=== PATIENT | male | born 2005 | race American Indian/Alaskan Native ===

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

== ENCOUNTER 2025-05-19 04:09 | Emergency (ER) | payer OTHER ==
[~2025-05-19] VITALS: Ht 182.9 cm; Wt 99.8 kg
[2025-05-19 04:16] VITALS: BP 153/90
[2025-05-19] MEDS ORDERED: Veetids 500500 MG PO (04:16)
[2025-05-19] MEDS ORDERED: PERIDEX15 ML MM (04:16)
[2025-05-19] MEDS ORDERED: IBU600 MG PO (04:16)
== END 2025-05-19 04:37 | disposition home or self-care (01) ==
LOC: ER 04:09
DX: K08.89 Other specified disorders of teeth and supporting structures (principal)
CPT/HCPCS: 99282; A9270